=== PATIENT | male | born 1995 | race Asian ===

== ENCOUNTER 2016-06-02 10:48 | Emergency (ER) | payer OTHER ==
[~2016-06-02] VITALS: Ht 185.4 cm; Wt 91.2 kg
[2016-06-02 14:53] VITALS: BP 129/60; TEMP 99
== END 2016-06-02 15:00 | disposition home or self-care (01) ==
LOC: ED 10:48
DX: B34.9 Viral infection, unspecified (principal)
CPT/HCPCS: 81000; 99282

== ENCOUNTER 2021-04-22 03:10 | Emergency (ER) | payer OTHER ==
[~2021-04-22] VITALS: Ht 185.4 cm; Wt 93.4 kg
[2021-04-22 04:30] VITALS: BP 135/78; TEMP 98.9
== END 2021-04-22 04:30 | disposition home or self-care (01) ==
LOC: ED 03:10
DX: J06.9 Acute upper respiratory infection, unspecified (principal); R50.9 Fever, unspecified; F17.210 Nicotine dependence, cigarettes, uncomplicated; Z20.822 Contact with and (suspected) exposure to COVID-19
CPT/HCPCS: 87635; 87651; 96372; 99283; J1100; U0003

== ENCOUNTER 2021-10-11 19:31 | Emergency (ER) | payer OTHER ==
[~2021-10-11] VITALS: Ht 185.4 cm; Wt 88.5 kg
[2021-10-11 20:17] LABS: PLATELET COUNT 297 K/uL (142-355)
[2021-10-11 20:31] LABS: POTASSIUM 3.5 mmol/L (3.6-5.2)
[2021-10-11 21:09] VITALS: BP 128/72; TEMP 98.4
== END 2021-10-11 21:09 | disposition home or self-care (01) ==
LOC: ED 19:31
PROVIDERS: Hospitalist
DX: R10.84 Generalized abdominal pain (principal); K27.7 Chronic peptic ulcer, site unspecified, without hemorrhage or perforation
CPT/HCPCS: 36415; 80053; 81000; 83690; 85027; 99283